=== PATIENT | male | born 1940 | race Caucasian/White ===

== ENCOUNTER → 2017-03-20 | Outpatient (CLI) | payer OTHER ==
[~2017-03-20] MED LIST: ASPIRIN EC81 M1 PO; CARVEDILOL6.25 MG PO; FLEXERIL PO; FLOMAX0.4 MG PO; GABAPENTIN 100100 MG PO; GLIPIZIDE ER2.5 MG PO; LANTUS SOL100 UNIT/1 SUBQ; METFORMIN HCL500 MG PO; NOVOLOG FL100 UNIT/M SUBQ; OMEGA-3100 MG; PREDNISONE 10 M10 MG PO; PRINIVIL20 MG PO; REQUIP 1 MG TABL1 M1 PO; SIMVASTATIN40 MG PO; VICODIN 5-5001 EACH PO; VICTOZA0.6 MG/0.1 SUBQ
== END ==
LOC: ULTRA 03-14 12:58
DX: K76.0 Fatty (change of) liver, not elsewhere classified (principal)

== ENCOUNTER → 2017-12-24 | Outpatient (CLI) | payer OTHER ==
[~2017-12-24] VITALS: Ht 175.3 cm; Wt 101.5 kg
--- NOTE | ~2017-12-24 | HPC ---
[facility] [place] [address] PAIN MANAGEMENT CONSULTATION Name: CARI RAJPUT Room #: REG [facility] Shaina#: [id number] Admission: 12/24/17 Attend Phys: Bernardo Carvajal DO Discharge: Date of : 38 Report #: [id number] THIS REPORT FOR: //name// CC: Bernardo Ron MD DATE OF SERVICE: 12/24/2017 CHIEF COMPLAINT: Low back pain, left lower extremity pain with paresthesias. HISTORY OF PRESENT ILLNESS: As you know, the patient is a very pleasant 77-year-old male with recurrent low back pain, left lower extremity pain with paresthesias. The patient states he had this symptom in 2016 where he had a CT-guided ablation of the synovial cyst at the L4-L5 level that was causing displacement of the left nerve root as it was actually in the neural foramen at that level. He states his pain improved over about a 6-month period of time and slowly and progressively returned. The patient states he has been experiencing pain over a year now and has discussed this with his primary care physician. The patient underwent x-ray imaging of the lumbar spine, which showed some mild arthritic changes based on the patient's recollection, though this is not available to us. The patient has not undergone definitive imaging to determine if his synovial cyst has returned and is the source of his symptoms. The patient has subsequently been referred to our clinic for evaluation for suspected lumbar radiculopathy. There is no new imaging available to us except for the reports from the patient of some arthritic changes on x-ray. The patient indicates pain is periodic and intermittent, describes the pain as shooting and stabbing, places current pain score 3/10, daily average at 7/10, worst pain has been 9/10. The patient states walking exacerbate symptoms, sitting down tends to improve pain. He has been referred to our service to discuss options for treatment for lumbar radiculopathy. PAST MEDICAL HISTORY: 1. Hyperlipidemia. 2. Hypertension. 3. 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 4. Restless leg syndrome. 5. Coronary artery disease. PAST SURGICAL HISTORY: 1. Coronary artery bypass grafting. 2. Craniotomy. SOCIAL HISTORY: The patient denies tobacco, alcohol, IV or illicit drug use. He retired in 2001. He is receiving disability from the [address] [place] [address] PAIN MANAGEMENT CONSULTATION Name: SHAEYOUNGCRAI FIGUEROA Room #: REG HERMAN Merritt#: [id number] Admission: 12/24/17 Attend Phys: Bernardo Carvajal DO Discharge: Date of : 38 Report #: [id number] Administration. He is not in litigation in regards to pain, is accompanied by his who is present in room today. REVIEW OF SYSTEMS: Positive for changes in bowel movements, constipation, frequent urination, nocturia, kidney stones, numbness and tingling sensations in bilateral feet, head injury with required surgical intervention, insulin-dependent diabetes, excessive thirst, urination, chronic low back pain. All other review of systems negative per 12-point review of systems other than those listed in history of present illness. Pain impact score 20/70 indicating [id number] interference of daily activities secondary to pain. ALLERGIES: No reported drug allergies. CURRENT MEDICATIONS: Victoza 0.6 mg subcutaneous, gabapentin 100 mg 3 times a day, Lantus 50 units subQ at bedtime, NovoLog 12 units 3 times a day, cyclobenzaprine 10 mg 3 times a day, prednisone 10 mg per day, tamsulosin 0.4 mg per day, aspirin 81 mg per day, lisinopril 20 mg per day, carvedilol 6.25 mg twice a day, simvastatin 40 mg per day, Requip 1 mg 2 tabs per day. IMAGING: No imaging available. PQRS: The patient has osteoarthritis of the left lower extremity and right lower extremity. Pain intensity is rated at 3/10. He does not have rheumatoid arthritic diagnosis. He is not a fall risk, has not had a fall in the last 3 months. He is not on blood thinners. He is treated for hypertension. He is not on opioids. His risk assessment tool for opioid addiction is low. PAIN ASSESSMENT: See above. PHYSICAL EXAMINATION: VITAL SIGNS: Blood pressure 110/80, pulse 83, respiratory rate 16 and unlabored. The patient is 97% on room air. Height 5 feet 9 inches tall, weight 223.8 pounds, and BMI calculated 33. GENERAL: Well-developed, well-nourished, well-hydrated, morbidly obese 77-year-old male appearing stated age, placing current pain score at 3/10. HEENT: Normocephalic, atraumatic. Pupils are equal, round, reactive to light. Extraocular muscles are intact. Sclerae nonicteric without injection. NEUROLOGIC: Cranial nerves 2 through 12 grossly intact. Speech is fluent. The patient deemed a fair historian. LUNGS: Clear, no wheeze, rhonchi or rales. CARDIOVASCULAR: Regular. No appreciable gallop, no rub. ABDOMEN: Soft, obese, nontender, nondistended. EXTREMITIES: Show no clubbing, no cyanosis, no edema. MUSCULOSKELETAL: Lower extremity strength appears equal and symmetrical 5/5, [address] [address] PAIN MANAGEMENT CONSULTATION Name: CARI RAJPUT Room #: REG [facility]#: [id number] Admission: 12/24/17 Attend Phys: Bernardo Carvajal DO Discharge: Date of : 38 Report #: [id number] intact to light touch from L1 through S2 dermatomes. Seated straight leg raising positive on the left. Supine straight leg raising positive on the left. Tio's test negative. Modified Gaenslen's positive for axial low back pain. Ankle clonus negative. Babinski is negative. Muscle bulk and tone appears equal and symmetrical. Gait antalgic favoring left lower extremity over right. Lumbar provocation testing is met with increasing pain with axial rotation, lateral flexion. ASSESSMENT: 1. Lumbar radiculopathy. 2. Facet arthropathy of the lumbar spine. 3. Chronic intractable pain. PLAN: 1. Based on today's physical exam and history the patient is providing, the description the patient uses in regards to pain, the likely source of the symptoms is a lumbar radiculopathy. 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 The patient underwent ablation of this synovial cyst via fenestration under CT guidance through Interventional Radiology. Apparently, his symptoms did improve. Unfortunately, his symptoms did return, which is fairly classic for a synovial cyst. I am concerned that the synovial cyst has returned to cause mass effect. Further imaging, I believe would be extremely helpful to determine if a referral to Interventional Radiology would been recommended or possible surgical options. If the patient does have a cystic formation at the L4-L5 level, fenestration of that cyst will provide improvement in symptoms, but no prolonged pain relief will be noted as the cyst will re-form and cause similar compressive effects. Surgical options tend to be the more prolonged and beneficial treatment option. We will have the patient undergo MRI imaging in the next couple of days. Once he has undergone the imaging, we will review the findings and contact the patient in regards to the treatment options. 2. The patient was provided prescription for MRI lumbar spine without contrast. The patient will undergo the imaging as quickly as possible. We wish to further evaluate the lumbar region before discussing definitive treatment options. If the symptoms are related to the cyst noted on the 2016, fenestration of the cyst would be recommended initially. If this does not provide benefit for greater than 6 months, I would then recommend the patient be evaluated from a surgical standpoint to remove the cyst entirely where it would continue to reoccur. The patient was provided the MRI today. We will review the findings once they are available. 3. No medication changes made at today's visit. The patient to continue current medical therapy as previously prescribed. 4. We will see the patient back in followup visit once he has completed his MRI, discuss the findings and then provide recommendations for treatment. [address] [address] PAIN MANAGEMENT CONSULTATION Name: CARI RAJPUT Room #: KRISTI Merritt#: [id number] Admission: 12/24/17 Attend Phys: Bernardo Carvajal DO Discharge: Date of : 38 Report #: [id number] 5. We wish to thank Dr. Ron for the referral of this patient to our clinic. 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 Again, we wish to thank you for the opportunity to see the patient in consultation. <ELECTRONICALLY SIGNED> By: Bernardo Carvajal DO 12/25/17 [id number] [id number] Bernardo Carvajal DO /nt
[2017-12-24 12:53] VITALS: BP 110/80
== END ==
LOC: PAIN 06:18
DX: M54.16 Radiculopathy, lumbar region (principal); G89.4 Chronic pain syndrome; M12.88 Other specific arthropathies, not elsewhere classified, other specified site; Z79.899 Other long term (current) drug therapy

== ENCOUNTER → 2017-12-25 | Outpatient (CLI) | payer OTHER | LOC: MRI 10:11 | DX: M47.896 Other spondylosis, lumbar region (principal); M54.16 Radiculopathy, lumbar region ==

== ENCOUNTER → 2017-12-25 | Outpatient (CLI) | payer OTHER ==
[~2017-12-25] VITALS: Ht 175.3 cm; Wt 102.2 kg
--- NOTE | ~2017-12-25 | HPC ---
[facility] [place] [address] PAIN MANAGEMENT CONSULTATION Name: SHAEYOUNGCARI MARTI Room #: REG [facility] Shaina#: [id number] Admission: 12/25/17 Attend Phys: Bernrado Carvajal DO Discharge: Date of : 38 Report #: [id number] THIS REPORT FOR: //name// CC: Bernardo Pittman DATE OF SERVICE: 12/25/2017 CHIEF COMPLAINT: Low back pain, left lower extremity pain and paresthesias. HISTORY OF PRESENT ILLNESS: As you know, the patient is a very pleasant 77-year-old male who has had history of low back pain and left lower extremity pain in 2016 for which he underwent fenestration of a synovial cyst at the L4-L5 level. He returns in followup visit having been seen just yesterday, diagnosed with lumbar radiculopathy and the source of his lumbar radicular symptoms was concerning for recurrence of the synovial cyst. He underwent MRI imaging, which showed the similar cyst, slightly larger than the 2016. This is causing mass effect upon the central canal with reduction of the central canal to less than 5 mm as well as displacement of the exiting nerve root. He returns today in followup visit to discuss treatment options. He is placing pain score at 3/10. He states his pain is sharp, stabbing, shooting, numbness and tingling; exacerbated with walking; worse in the morning, walking on inclines and uneven ground and standing; improves with sitting and repositioning. He returns today to review the MRI obtained earlier this morning to discuss treatment options. ALLERGIES: No reported drug allergies. CURRENT MEDICATIONS: Victoza, gabapentin, insulin, tamsulosin, aspirin, lisinopril, simvastatin, ropinirole. SOCIAL HISTORY: The patient denies tobacco, alcohol, IV or illicit drug use. He is retired. He is accompanied by his who is present in room today. IMAGING: MRI of the lumbar spine obtained on 12/25/2017 shows L1-L2 with mild facet arthropathy, no central canal neural foraminal stenosis. L2-L3, moderate bilateral posterior facet degenerative changes with ligamentum flavum hypertrophy, no central canal neural foraminal stenosis. L3-L4, moderate posterior facet degenerative changes, ligamentum flavum hypertrophy, no central canal neural foraminal stenosis. L4-L5, general disk bulge again seen anteriorly, projecting left posteriorly is a large synovial cyst. The cyst measures 1.5 x 0.9 cm in AP and transverse dimension. It causes mass effect upon the descending left L5 nerve root resulting in severe left lateral recess narrowing. At L5-S1, moderate posterior facet degenerative changes. No central canal [place] [address] PAIN MANAGEMENT CONSULTATION Name: CARI RAJPUT Room #: REG HERMAN Merritt#: [id number] Admission: 12/25/17 Attend Phys: Bernardo Carvajal DO Discharge: Date of : 38 Report #: [id number] PQRS: The patient has known osteoarthritis, bilateral hips, bilateral knees. No rheumatoid arthritis. He is placing pain intensity 3/10. He is not a fall risk, has not had a fall in the last 3 months. He is not on blood thinners. He is treated for hypertension. He is not on opioids. He is a low risk for opioid addiction. He places his pain impact functional assessment at 27/70. Zrjy-ze-[id number] interference of daily activities secondary to pain. PHYSICAL EXAMINATION: VITAL SIGNS: Blood pressure 113/72, pulse is 108, respiratory rate 16 and unlabored. The patient is 98% on room air. Height 5 feet 9 inch tall, weight 225.4 pounds, BMI calculated at 33.3. GENERAL: Well-developed, well-nourished, well-hydrated exogenously obese 77-year-old male. He appears his stated age. He is placing current pain score at 3/10. HEENT: Normocephalic, atraumatic. Pupils equal, round, reactive to light. Extraocular muscles are intact. Sclerae nonicteric without injection. NEUROLOGIC: Cranial nerves 2-12 grossly intact. Speech is fluent. EXTREMITIES: Show no clubbing, no cyanosis, no edema. MUSCULOSKELETAL: Seated straight leg raising positive on the left. Supine straight leg raising positive on the left. Tio's test negative. Modified Gaenslen's positive for axial low back pain. Ankle clonus negative. Babinski is negative. Gait antalgic favoring left lower extremity over right. ASSESSMENT: 1. Symptomatic lumbar radiculopathy. 2. Displacement of lumbar intervertebral disk with radiculopathy. 3. 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 4. Facet arthropathy of lumbar spine. 5. Neural foraminal stenosis of lumbar spine. 6. Lumbar degeneration. 7. Chronic intractable pain. PLAN: 1. The patient has returned today in followup visit where we have taken 24 minutes of time to review the patient's MRI and correlate to his specific findings. We used not only models but also digital representations to provide the patient with information about the findings at the L4-L5 level. After this discussion and review of his MRI, we discussed treatment options as follows. 2. We discussed the patient could undergo physical therapy, stretching exercise, core strengthening which might improve overall pain, but will not change the findings at the L4-L5 level. We discussed medication management, which may improve symptom perception, but will again not change any of the findings of the L4-L5 level. We discussed having the patient seek evaluation and treatment with Interventional Radiology to undergo fenestration of the synovial cyst as he had done in 2016, which gave him approximately 6 weeks to 8 [facility] [address] [place] [address] PAIN MANAGEMENT CONSULTATION Name: KRISTAYOUNGCARI FIGUEROA [facility] [id number] Admission: 12/25/17 Attend Phys: Bernardo Carvajal DO Discharge: Date of : 38 Report #: [id number] weeks' worth of relief. We also discussed surgical options to excise the cyst entirely, which would greatly reduce the possibility of the cyst returning spontaneously. After reviewing the risks and benefits of all proposed treatment options, the patient chose to move forward with a surgical consultation. 3. The patient was provided a referral to [facility]. We have taken the liberty of assisting the patient in making an appointment with nurse practitioner to be evaluated from a surgical standpoint to address the synovial cyst. The patient and I did discuss the possibility of fenestrate the cyst to improve pain, but he does wish to look towards surgical options before making any decisions of temporary treatment options. 4. We made no changes in the patient's medication management today. We will be available to see him back as necessary. We have offered to him treatment options and we will be available to provide if he wishes to move forward. We wish to thank Dr. Ron for the referral of the patient to our clinic. We will keep you apprised of any further treatment options provided through [facility]. Again, we wish to thank you for the opportunity to see the patient in consultation. By: [id number] Bernardo Carvajal DO /nt
[2017-12-25 12:58] VITALS: BP 113/72
== END ==
LOC: PAIN
DX: M54.16 Radiculopathy, lumbar region (principal); G89.4 Chronic pain syndrome; M51.36 Other intervertebral disc degeneration, lumbar region; M48.061 Spinal stenosis, lumbar region without neurogenic claudication; M12.88 Other specific arthropathies, not elsewhere classified, other specified site; M71.38 Other bursal cyst, other site

== ENCOUNTER 2019-10-07 21:21 | Inpatient (IN) | payer OTHER ==
[~2019-10-07] VITALS: Ht 175.3 cm; Wt 105.2 kg
--- NOTE | ~2019-10-07 | EMS ---
[address] [address] EMS Patient Care Report Name: CARI RAJPUT Room #: REG DIVINA Merritt#: [id number] Admission: 10/07/19 Attend Phys: Discharge: Date of : 38 Report #: [id number] THIS REPORT FOR: //name// Report Transmitted: 10/07/2019 23:04 EMS Care Summary [facility] Incident [id number] @ 10/07/2019 20:40 Incident Location [address] [place] [address] Patient CARI RAJPUT Male, 78 Years 1940 Patient Address [address] [place], [place] [id number] Patient History Diabetes,Hypertension (HTN),Arthritis,Coronary Artery Bypass Graft (CABG),Neuropathy, Patient Allergies No known allergies, Patient Medications Simvastatin, Gabapentin, Tamsulosin, Novolog, Carvedilol, Lisinopril, Trulicity, Lantus, Ropinirole, Chief Complaint Discomfort to arm Disposition Transported No Lights/[place] Dispatch Reason Chest Pain (Non-Traumatic) Transported To [facility] Medic 1 dispatched to the residence of a 78 year old male pt with a chief complaint of arm discomfort. Upon arrival crew located pt sitting upright [address] [address] EMS Patient Care Report Name: CARI RAJPUT Room #: REG DIVINA Merritt#: [id number] Admission: 10/07/19 Attend Phys: Discharge: Date of : 38 Report #: [id number] on a couch. Pt presented with a patent airway and warm dry skin. Pt stated that he was experiencing discomfort to his left arm that spread into his back. Pt stated that it was not painful but "uncomfortable". Pt stated that he had a hx of a quadruple bypass and had a similar feeling in his arm prior to needing the surgery. 12 lead EKG was preformed and showed no ST segment elevation at this time. Pt was placed on stretcher by crew and secured using straps. 20 g IV was established in pts right hand. 250 mL fluid bolus was administered in route to the hospital. Blood sugar check was 350. Pt stated that he normally checked his blood sugar regularly and took insulin earlier in the evening prior to dinner. Pt denied chest pain or SOA. Pt rated the discomfort in his arm as a 6/10. Pt denied nausea or vomiting. Pt denied recent trauma to arm. Pt denied cough or fever. Pt was transported to [facility] without incident and care was transferred to ED staff. Initial Vitals @20:48P: 90,R: 11,BP: 153/80,Pain: 6/10,GCS: 15,Revised Trauma: 12, @20:48P: 86,R: 10,Pain: 6/10,GCS: 15, @20:58P: 87,R: 14,Pain: 6/10,GCS: 15,CO: 0,SpO2: 96, @21:00P: 87,R: 18,BP: 154/101,Pain: 6/10,GCS: 15,SpO2: 97,Revised Trauma: 12, @21:10P: 90,R: 23,Pain: 6/10,GCS: 15,CO: 1,SpO2: 97, Assessments @20:46MENTAL:No Abnormalities,SKIN:HEENT:Head/Face: No Abnormalities,LUNG SOUNDS:General: No Abnormalities,Left Upper: No Abnormalities,Right Upper: No Abnormalities,Left Lower: No Abnormalities,Right Lower: No Abnormalities,ABDOMEN:General: No Abnormalities,Left Upper: No Abnormalities,Right Upper: No Abnormalities,Left Lower: No Abnormalities,Right Lower: No Abnormalities,PELVIS//GI:No Abnormalities,EXTREMITIES:Left Arm: Abnormal Sensation,Left Arm: Other,Capillary Refill: Right Upper: < 2 Sec,Right Arm: No Abnormalities,Left Leg: No Abnormalities,Right Leg: No Abnormalities,PULSE:Radial: 2+ Normal,NEURO:No Abnormalities, Impression Extremity Pain Procedures @20:59General CommentsResponse: Unchanged@20:58Saline Lock 0cc (20 ga) Site: Hand-RightResponse: UnchangedSucceeded@20:46ALS AssessmentResponse: UnchangedSucceeded@21:00Normal Saline (.9% NaCl) 250cc () Site: Hand-RightResponse: UnchangedSucceeded@20:4812-Lead ECGResponse: UnchangedSucceeded Timeline 20:38,Call Received 20:38,Psap Call 20:40,[place] [address] EMS Patient Care Report Name: CARI RAJPUT Room #: REG DIVINA Merritt#: [id number] Admission: 10/07/19 Attend Phys: Discharge: Date of : 38 Report #: [id number] 20:42,En Route 20:44,On Scene 20:45,At Patient 20:46,ALS Assessment,Response: UnchangedSucceeded, 20:48,12-Lead ECG,Response: UnchangedSucceeded, 20:48,BP: / M,PULSE: 86,RR: 10 R,SPO2: Ox,ETCO2: ,BG: ,PAIN: 6,GCS: 15, 20:48,BP: 153/80 M,PULSE: 90,RR: 11 R,SPO2: Ox,ETCO2: ,BG: ,PAIN: 6,GCS: 15, 20:55,Depart Scene 20:58,Saline Lock 0cc 20 ga Site: Hand-Right,Response: UnchangedSucceeded, 20:58,BP: / M,PULSE: 87,RR: 14 R,SPO2: 96 Ox,ETCO2: ,BG: ,PAIN: 6,GCS: 15, 20:59,General Comments,Response: Unchanged 21:00,Normal Saline (.9% NaCl) 250cc Site: Hand-Right,Response: UnchangedSucceeded, 21:00,BP: 154/101 M,PULSE: 87,RR: 18 R,SPO2: 97 Ox,ETCO2: ,BG: ,PAIN: 6,GCS: 15, 21:10,BP: / M,PULSE: 90,RR: 23 R,SPO2: 97 Ox,ETCO2: ,BG: ,PAIN: 6,GCS: 15, 21:15,At Destination 21:30,Call Closed Disclaimer v1.1 Copyright 2020 [employer] This EMS Care Summary contains data elements from the applicable legal record (which may be displayed differently). It is designed to provide pertinent information for the following purposes: continuity of care, clinical quality, and state data reporting. The complete legal record is available to ED staff and administrators of the receiving hospital in [employer] Patient Tracker. All data is provided "as is."
[2019-10-07 21:21] VITALS: BP 148/87
[2019-10-07 22:21] LABS: ANION GAP 12 mmol/L (7-16); BUN 23 mg/dL (7-18); CALCIUM 7.7 mg/dL (8.5-10.1); CHLORIDE 104 mmol/L (98-107); CO2 21 mmol/L (21-32); CREATININE 1.5 mg/dL (0.7-1.3); GLUCOSE 311 mg/dL (74-106); POTASSIUM 4.5 mmol/L (3.5-5.1); SODIUM 137 mmol/L (136-145)
[2019-10-07 22:31] LABS: ALBUMIN 2.9 g/dL (3.4-5.0); SGOT 36 U/L (15-37); SGPT 41 U/L (30-65); TOTAL BILIRUBIN 0.4 mg/dL (0.2-1.0); TOTAL PROTEIN 6.6 g/dL (6.4-8.2); TROPONIN-I <0.06 ng/mL (<0.06)
[2019-10-07 22:48] LABS: ABSOLUTE NEUTROPHILS 6.9 thou/uL (1.4-8.2); EOSINOPHILS 3.2 % (0.0-3.0); HEMATOCRIT 42.2 % (42.0-52.0); HEMOGLOBIN 14.3 gm/dL (14.0-18.0); LYMPHOCYTES 25.5 % (24.0-44.0); MCHC 33.8 g/dL (28.0-37.0); MCV 94.8 fL (80.0-100.0); MONOCYTES 8.6 % (1.0-8.0); PLATELET COUNT 244 thou/uL (150-400); POLYS 60.7 % (36.0-66.0); RBC 4.45 mil/uL (4.50-6.00); RDW 13.8 % (10.5-14.5); WBC 11.4 thou/uL (4.0-11.0)
[2019-10-08] VITALS (11 sets, daily range): BP systolic 98–148; BP diastolic 57–87
[2019-10-08 03:04] LABS: HEMATOCRIT 40.3 % (42.0-52.0); HEMOGLOBIN 13.7 gm/dL (14.0-18.0); MCH 32.2 pg (26.0-34.0); MCHC 33.9 g/dL (28.0-37.0); MCV 94.9 fL (80.0-100.0); RBC 4.25 mil/uL (4.50-6.00); RDW 13.3 % (10.5-14.5); WBC 11.1 thou/uL (4.0-11.0)
[2019-10-08 03:22] LABS: INR 1.1; PROTIME 11.4 Seconds (9.3-11.4)
[2019-10-08 03:43] LABS: CHOLESTEROL 95 mg/dL (<200); HDL CHOLESTEROL 31 mg/dL (>40); LDL CHOLESTEROL 46 mg/dL (<100); TC:HDL 3.1 Ratio (Not establshd); TRIGLYCERIDE 94 mg/dL (<150); VLDL 19 mg/dL (<40)
[2019-10-08 03:58] LABS: SERUM ASSESSMENT Clear
--- NOTE | 2019-10-08 04:19 | NUR ---
RECIEVED PT FROM ED UPON ARRIVAL PT DENIES CHEST OR LEFT BACK AND SHOULDER PAIN. [PT ABULATED FROM CART TO BED ,THEN STOOD TO WEIGH , TOLERATED WELL. PLACED ON THEATRICAL DRESSER SHOWS NSR 74 . DATA BASE AND ASSESSMENT COMPLETED. NEW IV PLACED AND HEPARIN GTT STARTED PRE ORDERED. DISCUSSED PLAN OF CARE AND NPO STATUS, PT VERBALIZEDAND AGREEABLE. PT WILL INFORM TO BRING MEDICATION RECORD IN AM.
--- NOTE | 2019-10-08 08:27 | EKG ---
[facility] [address] [place] [address] ELECTROCARDIOGRAM REPORT Name: CARI RAJPUT Room #: 211-P ADM IN M.R.#: [id number] Admission: 10/08/19 Attend Phys: Kinsey Hernandez Discharge: Date of : 38 Report #: [id number] THIS REPORT FOR: cc: Damon Ron Steven F. DO Couchonnal, Luis F. 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
[2019-10-08 10:04] LABS: CALCIUM 8.4 mg/dL (8.5-10.1); CREATININE 1.4 mg/dL (0.7-1.3); PHOSPHORUS 3.2 mg/dL (2.5-4.9)
[2019-10-08 10:51] LABS: FOLIC ACID 8.9 ng/mL (8.6-58.9)
--- NOTE | 2019-10-08 11:55 | 2DMMODE ---
[facility] [place] [address] 2 D/M-MODE ECHOCARDIOGRAM Name: CARI RAJPUT FIGUEROA Room #: 211-P ADM IN M.R.#: [id number] Admission: 10/08/19 Attend Phys: Kinsey Hernandez Discharge: Date of : 36 Report #: [id number] THIS REPORT FOR: cc: Damon Ron,Clifford Jordan MD ~ APPROVED REPORT Study performed: 10/08/2019 10:56:42 EXAM: Comprehensive 2D, Doppler, and color-flow Echocardiogram Patient Location: Bedside Room #: 211 Status: routine BSA: 2.22 HR: 73 bpm BP: 126/64 mmHg Rhythm: NSR Other Information Study Quality: Adequate Indications Arm pain, NSTEMI. Hx: CABG, HTN, HLD, DM. 2D Dimensions RVDd: 37.73 mm IVSd: 9.00 (7-11mm) LVOT Diam: 22.00 (18-24mm) LVDd: 49.00 mm PWd: 10.00 (7-11mm) Ascending Ao: 34.00 (22-36mm) LVDs: 36.20 (25-40mm) Aortic Root: 35.00 mm Volumes Left Atrial Volume (Systole) Single Plane 4CH: 40.18 mL Single Plane 2CH: 40.69 mL LA ESV Index: 19.00 mL/m2 Aortic Valve AoV Peak Keith.: 1.41 m/s AO Peak Gr.: 7.90 mmHg LVOT Max P.32 mmHg LVOT Max V: 0.76 m/s CLOVIS Vmax: 2.06 cm2 [facility] [address] [place] [address] 2 D/M-MODE ECHOCARDIOGRAM Name: CARI RAJPUT FIGUEROA Room #: 211-P [facility] IN [facility].#: [id number] Admission: 10/08/19 Attend Phys: Kinsey Koehler Discharge: Date of : 38 Report #: [id number] Mitral Valve E/A Ratio: 0.9 MV Decel. Time: 176.10 ms MV E Max Keith.: 0.70 m/s MV A Keith.: 0.81 m/s MV PHT: 51.07 ms IVRT: 65.74 ms Pulmonary Valve PV Peak Keith.: 1.00 m/s PV Peak Gr.: 3.98 mmHg Pulmonary Vein P Vein S: 0.62 m/s P Vein A: 0.29 m/s P Vein D: 0.46 m/s P Vein A Dur.: 110.7 msec P Vein S/D Ratio: 1.35 Tricuspid Valve TR Peak Keith.: 2.33 m/s RAP Estimate: 5.00 mmHg TR Peak Gr.: 22.00 mmHg PA Pressure: 27.00 mmHg Left Ventricle The left ventricle is normal size. There is normal left ventricular wall thickness. Left ventricular systolic function is low normal. LVEF is 50%. Mild diastolic dysfunction is present (impaired relaxation pattern). Right Ventricle The right ventricle is normal size. The right ventricular systolic function is normal. Atria The left atrium size is normal. The right atrium size is normal. Aortic Valve Aortic valve is mildly calcified. Trace aortic regurgitation. There is no aortic valvular stenosis. Mitral Valve The mitral valve is normal in structure. Mild mitral regurgitation. No evidence of mitral valve stenosis. Tricuspid Valve The tricuspid valve is normal in structure. Mild to moderate [facility] [address] [place] [address] 2 D/M-MODE ECHOCARDIOGRAM Name: REGULOCARI FIGUEROA Room #: 211-P ADM IN M.R.#: [id number] Admission: 10/08/19 Attend Phys: Kinsey Koehler Discharge: Date of : 36 Report #: [id number] tricuspid regurgitation. Estimated PAP is 25-30mmHg. Pulmonic Valve The pulmonary valve is normal in structure. Trace pulmonic regurgitation. Great Vessels The aortic root is normal in size. The ascending aorta is normal in size. IVC is normal in size and collapses >50% with inspiration. Pericardium There is no pericardial effusion. <Conclusion> The left ventricle is normal size. LVEF is 50%. Aortic valve is mildly calcified. Trace aortic regurgitation. The mitral valve is normal in structure. Mild mitral regurgitation. The tricuspid valve is normal in structure. Mild to moderate tricuspid regurgitation. Estimated PAP is 25-30mmHg. The pulmonary valve is normal in structure. Trace pulmonic regurgitation. There is no pericardial effusion. <ELECTRONICALLY SIGNED> By: Clifford Márquez MD 10/08/19 1155 1155 1155 Clifford Márquez MD /INF
[2019-10-08] MEDS ORDERED: TRULICITY1.5 MG/0.5 (12:12)
[2019-10-08 17:02] LABS: HEMATOCRIT 39.7 % (42.0-52.0); HEMOGLOBIN 13.6 gm/dL (14.0-18.0); MCH 32.2 pg (26.0-34.0); MCHC 34.3 g/dL (28.0-37.0); MCV 94.1 fL (80.0-100.0); RBC 4.21 mil/uL (4.50-6.00); RDW 13.7 % (10.5-14.5); WBC 12.4 thou/uL (4.0-11.0)
--- NOTE | 2019-10-08 18:32 | NUR ---
PT CARE ASSUMED APPROX 1630. ALERT AND ORIENTED X4. PT DENIES PAIN AND SOA. POST CARDIAC CATH VSS. RIGHT GROIN POST CATH SITE C/D/I. PT UP WITH STEADY GAIT AFTER BEDREST. PT DENIES QUESTIONS OR CONCERNS REGARDING POC. NO DISTRESS NOTED.
[2019-10-09] VITALS (7 sets, daily range): BP systolic 94–138; BP diastolic 58–70
[2019-10-09 01:06] LABS: GLYCOHEMOGLOBIN (HGB A1C) 8.3 % (4.8-5.6)
[2019-10-09] MEDS ORDERED: METOPROLOL SUCC25 M1 PO (07:51)
[2019-10-09] MEDS ORDERED: LIPITOR40 MG PO (07:51)
[2019-10-09] MEDS ORDERED: EFFIENT10 MG PO (07:51)
--- NOTE | 2019-10-09 07:53 | NUR ---
Assumed Care 1900. pt alert and oriented. off bedrest S/p heart cath. Denies chest pain, or SOB. No nausea V/D. Pt insulin scheduled changed from AC to ACHS last night per Pt request. Ad carloz in his room. No other concerns. Pt anticipate to DC home this AM. Will continue with poc.
[2019-10-09 08:11] LABS: ABSOLUTE NEUTROPHILS 7.5 thou/uL (1.4-8.2); HEMATOCRIT 42.2 % (42.0-52.0); HEMOGLOBIN 14.6 gm/dL (14.0-18.0); MCH 32.5 pg (26.0-34.0); MCHC 34.7 g/dL (28.0-37.0); MCV 93.7 fL (80.0-100.0); MONOCYTES 9.4 % (1.0-8.0); PLATELET COUNT 251 thou/uL (150-400); POLYS 62.6 % (36.0-66.0); RBC 4.51 mil/uL (4.50-6.00); WBC 12.1 thou/uL (4.0-11.0)
[2019-10-09 08:27] LABS: ALBUMIN 3.2 g/dL (3.4-5.0); CALCIUM 8.9 mg/dL (8.5-10.1); CREATININE 1.4 mg/dL (0.7-1.3); POTASSIUM 4.3 mmol/L (3.5-5.1); TOTAL BILIRUBIN 0.8 mg/dL (0.2-1.0); TOTAL PROTEIN 7.2 g/dL (6.4-8.2)
[2019-10-09 08:36] LABS: TROPONIN-I 3.06 ng/mL (<0.06)
--- NOTE | 2019-10-09 08:36 | NUR ---
PT. DENIES ANY SHOULDER PAIN, NO CHEST PAIN EITHER, NOR SOB. REVIEWED HIS MEDICATIONS WIH HIM AND EXPLAINED TO HIM HIS NEW MEDICATION STHAT HAVE BEEN ADDED TO HIOS TREATMENT PLAN AND THE IMPORTANCE OF SUCH AND COMPLIANCE TO KEEP HIS STENT OPEN AND CLOT FREE, AGREED TO SUCH. EATING BREAKFAST NOW, MEDICATIONS GIVEN.
--- NOTE | 2019-10-09 09:20 | EKG ---
[facility] [place] [address] ELECTROCARDIOGRAM REPORT Name: CARI RAJPUT Room #: 211-P ADM IN M.R.#: [id number] Admission: 10/08/19 Attend Phys: Kinsey Hernandez Discharge: Date of : 38 Report #: [id number] THIS REPORT FOR: cc: Damon Ron,Xavier Varghese MD [facility] ~ THIS REPORT FOR: //name// [facility] Test Date: 2019-10-09 Test Time: 07:38:53 Pat Name: CARI RAJPUT Department: Room: 211 P Gender: M Trap Puller: JANIS : 1940 Requested By: Matthew Elder Order Number: [id number] MD: Xavier Vidal Measurements Intervals [place] Rate: 89 P: 43 WV: 169 QRS: 31 QRSD: 125 T: 133 QT: 370 QTc: 451 Interpretive Statements Sinus rhythm Nonspecific ST segment abnormality Baseline wander in lead(s) II,V6 Compared to ECG 10/07/2019 21:29:29 No significant change was found Electronically Signed On 10-09-2019 9:19:57 CDT by Xavier Vidal [email or web address] <ELECTRONICALLY SIGNED> By: Xavier Vidal MD, [facility] 10/09/19918 7 7 Xavier Vidal MD, FAC /EPI
--- NOTE | 2019-10-09 09:52 | NUR ---
RIGHT GROIN SITE IS HEMATOMA FREE, DRESING IS C,D,I PEDAL PULSES ARE 2+ BILATERALLY AND STRONG.
--- NOTE | 2019-10-09 15:29 | CATHLAB ---
[facility] [place] [address] INVASIVE PROCEDURE REPORT Name: CARI RAJPUT Room #: 211-P ADM IN M.R.#: [id number] Admission: 10/08/19 Attend Phys: Sriramfunmilayo Laurent David Discharge: Date of : 38 Report #: [id number] THIS REPORT FOR: cc: Damon Ron Steven F. DO Mancuso, Gerald M. MD [facility] ~ APPROVED REPORT Study performed: 10/08/2019 12:51:56 Patient Details The patient is a 78 year-old male Event Personnel Matthew Elder Meat Apprentice, Alpesh Sales RN, [place] RTR Scrub, Nancy Ya RT(R)() Monitor Procedures Performed Art Access - R femoral artery* Left Heart Cath Coronaries, Bypass Grafts 2801431 LHCCORCABG JENNIFER Place w/wo Plasty Single RAMUS Inter 888431 Abdominal Aortography 072086 Hemostasis w/ Mynx 80887 Initial Mod Sed Same Phys/QHP Gr5y 780990 67968 Mod Sed Same Phys/QHP Ea 795649 Procedure Narrative The Right Groin^ was infiltrated with 1% Lidocaine subcutaneous anesthesia. A PINNACLE 6FR Sheath #[id number] sheath was inserted into the RFA^. Coronary angiography was performed using coronary diagnostic catheters. The right coronary system was accessed and visualized with a JR4 catheter. The left coronary system was accessed and visualized with a JL4 catheter. The left ventricle was accessed and visualized with a PIGTAIL catheter. The patient tolerated the procedure well and there were no complications associated with the procedure. There was no hematoma. Intraoperative Conscious Sedation Fentanyl 50 mcg Versed 2 mg Fluoro Time: 11.10 minutes Dose: DAP 79556.70 cGycm2 3859 mGy Contrast Type and Amount: Visipaque 257 ml Hemodynamics The aortic pressure is 108/56 mmHg with a mean of 78 mmHg. The left [facility] [address] [place] [address] INVASIVE PROCEDURE REPORT Name: CARI RAJPUT FIGUEROA Room #: 211-P [facility] IN .R.#: [id number] Admission: 10/08/19 Attend Phys: Kinsey Koehler Discharge: Date of : 38 Report #: [id number] ventricular pressure is 112/4 mmHg with a mean of mmHg. The left ventricular end diastolic pressure is 24 mmHg. PCI Technique Lesion Percutaneous coronary intervention was performed on the ramus intermedius segment. A LAUNCHER 6FR EBU 3.5 #[id number] Guide Catheter was used to engage the ostium. A Luge Wire .014 x 182CM #[id number] Interventional Guidewire was used to cross the lesion. BALLOON DILATION A Balloon catheter Sprinter OTW 2.25 x 12 #[id number] was inserted and inflated up to 8.00atm for 22seconds. Additional Inflation: 10.00atm for 22seconds. STENT DEPLOYMENT A stent RESOLUTE KYRA RX 2.25 X 8 #[id number] was inserted and inflated up to 12.00atm for 22seconds. Additional Inflation: 10.00atm for 19seconds. Additional Inflation: 14.00atm for 17seconds. Conclusion 1. Successful PTCA stent of a high-grade subtotal ostial ramus intermedius branch placement of a 2.25 x 8 resolute postdilated to 2.4 mm RITO grade III flow #2 moderately diseased LAD giving rise to a totally occluded LAD and moderate ostial circumflex system #3 a RADFORD to LAD with a jump graft to diagonal is widely patent. Mild disease LAD and diagonal retrograde filling of a OM system is noted #4 probable and a nondominant right coronary with mild disease. #5 an SVG urinary probable this was a radial graft that is patent to the distal circumflex OM system filling the posterior lateral branch and some retrograde filling of the first OM via this graft dominant system #6 the circumflex gives rise to a first OM branch which is widely patent does not appear to be bypassed. There is also a ramus branch as noted above that was intervened on. This was not bypassed. #7 normal left ventricular size and systolic function EF 55% #8 abdominal aortogram mild aortic ectasia. Appears to be mildly diseased renal arteries possibly a moderate disease in the left renal artery will evaluate noninvasively. No definite aneurysm. Recommendations and plan: Continue aggressive risk factor modification. Dual antiplatelet therapy initiated with the [facility] [address] [place] [address] INVASIVE PROCEDURE REPORT Name: CARI RAJPUT Room #: [facility] IN M.R.#: [id number] Admission: 10/08/19 Attend Phys: Kinsey Koehler Discharge: Date of : 38 Report #: [id number] branch intervention. Transferred to CCU to follow post coronary stent protocol <ELECTRONICALLY SIGNED> By: Matthew Elder MD, FACC 10/09/19 1529 1529 1529 Matthew Elder MD, FACC /INF
--- NOTE | 2019-10-09 19:29 | NUR ---
RIGHT GROIN SITE REMAINS HEMATOMA FREE. RESTING IN BED NO COMPLAINTS, DENIES ANY PAIN. NSR NO ECTOPY AND DENIES SOB.
[2019-10-10 04:18] VITALS: BP 103/70
[2019-10-10 08:30] VITALS: BP 125/71
[2019-10-10 11:29] VITALS: BP 125/71
--- NOTE | 2019-10-10 12:48 | NUR ---
assessment as charted. meds as per may - no co's of pain or nasuea. shon diet ane fluids. up ad carloz in room - pt home this am, instruction re home meds. care and follow up given to aptient - stated understanding of instruction given, pt instructed to remove dressing from groin site this evening or in the am. pt's had already picked up [place] prescriptions from pharmacy. pt left unit via wheel chair accomapnied by wifr home via pvt vehicle. no co's at time of d/c. monitor removed.
== END 2019-10-10 11:45 | disposition home or self-care (01) | DRG 246 ==
LOC: ER 21:21 → EROBS 10-08 02:03 → 2N 10-08 02:03
PROVIDERS: Emergency Medicine; Internal Medicine Cardiovascular Disease; Nurse Practitioner; Nurse Practitioner Family; ADMIT Hospitalist; ATTEND Hospitalist
PROC: B215YZZ Fluoroscopy of Left Heart using Other Contrast (ICD-10-PCS; principal; 2019-10-08)
PROC: B211YZZ Fluoroscopy of Multiple Coronary Arteries using Other Contrast (ICD-10-PCS; principal; 2019-10-08)
PROC: B212YZZ Fluoroscopy of Single Coronary Artery Bypass Graft using Other Contrast (ICD-10-PCS; principal; 2019-10-08)
PROC: 027034Z Dilation of Coronary Artery, One Artery with Drug-eluting Intraluminal Device, Percutaneous Approach (ICD-10-PCS; principal; 2019-10-08)
PROC: 4A023N7 Measurement of Cardiac Sampling and Pressure, Left Heart, Percutaneous Approach (ICD-10-PCS; principal; 2019-10-08)
PROC: B218YZZ Fluoroscopy of Left Internal Mammary Bypass Graft using Other Contrast (ICD-10-PCS; principal; 2019-10-08)
PROC: B410YZZ Fluoroscopy of Abdominal Aorta using Other Contrast (ICD-10-PCS; principal; 2019-10-08)
DX: I21.4 Non-ST elevation (NSTEMI) myocardial infarction (principal); I50.31 Acute diastolic (congestive) heart failure; N17.9 Acute kidney failure, unspecified; E44.0 Moderate protein-calorie malnutrition; E78.5 Hyperlipidemia, unspecified; G89.29 Other chronic pain; M54.9 Dorsalgia, unspecified; I25.10 Atherosclerotic heart disease of native coronary artery without angina pectoris; E86.0 Dehydration; I12.9 Hypertensive chronic kidney disease with stage 1 through stage 4 chronic kidney disease, or unspecified chronic kidney disease; E11.22 Type 2 diabetes mellitus with diabetic chronic kidney disease; N18.9 Chronic kidney disease, unspecified; E83.51 Hypocalcemia; N40.0 Benign prostatic hyperplasia without lower urinary tract symptoms; E11.42 Type 2 diabetes mellitus with diabetic polyneuropathy; I08.3 Combined rheumatic disorders of mitral, aortic and tricuspid valves; Z95.1 Presence of aortocoronary bypass graft; Z85.828 Personal history of other malignant neoplasm of skin; Z79.82 Long term (current) use of aspirin; Z79.899 Other long term (current) drug therapy; Z79.4 Long term (current) use of insulin; Z82.49 Family history of ischemic heart disease and other diseases of the circulatory system; Z87.891 Personal history of nicotine dependence
CPT/HCPCS: 10081

== ENCOUNTER → 2019-11-20 | Outpatient (CLI) | payer OTHER ==
[~2019-11-20] MED LIST changes: +EFFIENT10 MG PO; +LIPITOR40 MG PO; +METOPROLOL SUCC25 M1 PO; +TRULICITY1.5 MG/0.5
== END ==
LOC: SJCVCIMAG 08:58
PROVIDERS: ATTEND Internal Medicine Cardiovascular Disease
DX: R94.31 Abnormal electrocardiogram [ECG] [EKG] (principal); I73.9 Peripheral vascular disease, unspecified; I25.10 Atherosclerotic heart disease of native coronary artery without angina pectoris; I10 Essential (primary) hypertension; E78.00 Pure hypercholesterolemia, unspecified; I70.1 Atherosclerosis of renal artery; E11.9 Type 2 diabetes mellitus without complications; Z79.4 Long term (current) use of insulin; Z79.899 Other long term (current) drug therapy

== ENCOUNTER → 2020-04-05 | Outpatient (CLI) | payer OTHER | LOC: SJCVC 13:22 → SJCVCIMAG 13:22 | PROVIDERS: ATTEND Internal Medicine Cardiovascular Disease | DX: I65.23 Occlusion and stenosis of bilateral carotid arteries (principal); I25.810 Atherosclerosis of coronary artery bypass graft(s) without angina pectoris; R94.31 Abnormal electrocardiogram [ECG] [EKG]; I10 Essential (primary) hypertension; E78.00 Pure hypercholesterolemia, unspecified; E11.9 Type 2 diabetes mellitus without complications; I70.1 Atherosclerosis of renal artery; Z95.1 Presence of aortocoronary bypass graft; Z95.5 Presence of coronary angioplasty implant and graft; Z79.4 Long term (current) use of insulin; Z79.82 Long term (current) use of aspirin; Z79.899 Other long term (current) drug therapy; Z82.49 Family history of ischemic heart disease and other diseases of the circulatory system ==

== ENCOUNTER → 2020-08-02 | Outpatient (CLI) | payer OTHER | LOC: RAD 16:25 | PROVIDERS: ATTEND Neuromusculoskeletal Medicine & OMM | DX: M25.551 Pain in right hip (principal); M25.552 Pain in left hip; M54.5 Low back pain ==

== ENCOUNTER → 2020-08-15 | Outpatient (CLI) | payer OTHER | LOC: MRI 09:14 | PROVIDERS: ATTEND Neuromusculoskeletal Medicine & OMM | DX: M47.816 Spondylosis without myelopathy or radiculopathy, lumbar region (principal); M48.061 Spinal stenosis, lumbar region without neurogenic claudication; M51.36 Other intervertebral disc degeneration, lumbar region ==

== ENCOUNTER → 2020-09-06 | Outpatient (CLI) | payer OTHER | LOC: SJCVCIMAG 08:03 | PROVIDERS: ATTEND Internal Medicine Cardiovascular Disease | DX: I49.3 Ventricular premature depolarization (principal); R07.89 Other chest pain; R06.00 Dyspnea, unspecified; I25.810 Atherosclerosis of coronary artery bypass graft(s) without angina pectoris; E11.42 Type 2 diabetes mellitus with diabetic polyneuropathy; E78.00 Pure hypercholesterolemia, unspecified; I10 Essential (primary) hypertension; I65.23 Occlusion and stenosis of bilateral carotid arteries; Z95.1 Presence of aortocoronary bypass graft; Z95.5 Presence of coronary angioplasty implant and graft; Z79.82 Long term (current) use of aspirin; Z79.4 Long term (current) use of insulin; Z79.899 Other long term (current) drug therapy; Z82.49 Family history of ischemic heart disease and other diseases of the circulatory system ==

== ENCOUNTER → 2020-09-13 | Outpatient (CLI) | payer OTHER ==
[~2020-09-13] VITALS: Ht 175.3 cm; Wt 105.2 kg
[~2020-09-13] MED LIST changes: +JARDIANCE10 MG PO
--- NOTE | ~2020-09-13 | HPC ---
[facility] [place] [address] PAIN MANAGEMENT CONSULTATION Name: CARI RAJPUT Room #: REG [place]asen [place]#: [id number] Admission: 09/13/20 Attend Phys: Bernardo Carvajal DO Discharge: Date of : 38 Report #: [id number] THIS REPORT FOR: cc: Damon Ron,Bernardo Garcia DO ~ cc: Damon Ron MD DATE OF SERVICE: 09/13/2020 CHIEF COMPLAINT: Low back pain. HISTORY OF PRESENT ILLNESS: As you know, the patient is a very pleasant 79-year-old male who reports ongoing low back pain that has been present for years, denying any injury or trauma. He has undergone imaging studies in 2018, which showed changes at the L4-L5 level for which he submitted to a surgery to address. His symptoms improved only minimally after that surgery. He continued to experience axial back pain. He continued to describe pain complaints and ultimately was sent by his primary care physician, Dr. Ron to undergo new imaging, which was performed on 08/15/2020. It does show postsurgical changes at L4-L5. No significant central canal or neural foraminal stenosis at any level. He was referred back to our clinic to discuss treatment options of axial back pain that worsens with activity and standing, improves with sitting and lying down. The patient reports today pain is continuous, steady and constant when doing activities, improves with sitting and lying down. His pain rating today is anywhere from 7-8/10. Pain has been going on for years. He apparently underwent physical therapy per his recollection, but in further questioning, the physical therapy was actually for cardiovascular issues and not addressing his low back and thus had no effect on his symptoms. He has been referred to our service to discuss interventional treatment options to address axial back pain, likely due to facet arthropathy. PAST MEDICAL HISTORY: 1. Coronary artery disease. 2. Hypertension. 3. Dyslipidemia. 4. Neuropathic pain. 5. Diabetes mellitus type 2. 6. Restless leg syndrome. PAST SURGICAL HISTORY: 1. L4-L5 microlaminotomy. 2. Coronary artery angioplasty with stenting. 3. Coronary artery bypass grafting. 4. Craniotomy. [address] [address] PAIN MANAGEMENT CONSULTATION Name: CARI RAJPUT [facility] Room #: REG Jasen Merritt#: [id number] Admission: 09/13/20 Attend Phys: Bernardo Carvajal DO Discharge: Date of : 38 Report #: [id number] SOCIAL HISTORY: The patient denies tobacco, alcohol, or IV or illicit drug use. He is retired, retired years ago. He is accompanied by a family member present in the room today. ALLERGIES: No reported drug allergies. CURRENT MEDICATIONS: Jardiance 10 mg once a day, metoprolol XL 25 mg once a day, atorvastatin 40 mg per day, Effient 10 mg per day, Trulicity 1.5 mg weekly, gabapentin 100 mg q.a.m., sliding scale insulin, Lantus 20 units subcutaneously twice a day, tamsulosin 0.4 mg once a day, aspirin 81 mg per day, lisinopril 20 mg per day, and ropinirole 1 mg p.r.n. IMAGING: MRI lumbar spine obtained on 08/15/2020, shows changes at the L4-L5 level consistent with microlaminotomy. There is no recurrence of the cystic formation. There are arthritic changes noted at L4-L5 and L5-S1. PQRS: The patient has known arthritic changes of the lumbar spine, bilateral hips and knees. No rheumatoid arthritis. He is placing current pain score 7-8/10. He is not a fall risk, has not had a fall in last 3 months. He is on blood thinners and is treated for hypertension. He is not on chronic opioids, has a low opioid addiction potential based on assessment tool. Pain impact is 27/70, moderate interference of daily activities secondary to pain. PHYSICAL EXAMINATION: VITAL SIGNS: Blood pressure 109/63, pulse 87, respiratory rate 16 and unlabored. The patient 97% on room air. Height 5 feet 9 inches tall, weight 232 pounds, BMI calculated 34.2. GENERAL: Well-developed, well-nourished, well-hydrated 79-year-old male appearing stated age, pain is rated today at 7-8/10. HEENT: Normocephalic, atraumatic. Pupils equal, round and responsive. He is wearing a mask in compliance with COVID-19 regulations. LUNGS: Appear clear. No wheeze, rhonchi or rales. CARDIOVASCULAR: Regular. No appreciable gallop, no rub. ABDOMEN: Soft, mildly obese. EXTREMITIES: Show no clubbing, no cyanosis, no edema. MUSCULOSKELETAL: Lower extremity strength equal and symmetrical, but deconditioned, rated at 5/5. Deep tendon reflexes are symmetrical at patella and Achilles. Ankle clonus negative. Babinski is negative. Seated straight leg raising negative. Supine straight leg raising negative. Fabere's test is negative. Modified Gaenslen's positive for axial low back pain. Lumbar provocation testing including extension, rotation, lateral flexion all intensify axial back pain. ASSESSMENT: 1. 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 [facility] [address] [place] [address] PAIN MANAGEMENT CONSULTATION Name: CARI RAJPUT Room #: REG NAFISAJasen Merritt#: [id number] Admission: 09/13/20 Attend Phys: Bernardo Carvajal DO Discharge: Date of : 38 Report #: [id number] 2. Facet arthropathy of lumbar spine. 3. Failed lumbar spine surgery. 4. Chronic intractable pain. PLAN: 1. Based on today's physical exam and history the patient has provided, the description the patient uses in regards to pain as well as the location of symptoms, it would appear the patient is suffering from chronic facet arthropathy of the lumbar spine due to the findings at the L4-L5 and L5-S1 level. The fact that the surgery did not improve his axial back pain is completely understandable as the surgery itself was to address the cystic formation that was causing impingement upon the nerve roots, which did resolve the patient's radicular pain, but left him with continued axial back pain due to facet arthropathy. We discussed this with the patient today. After this discussion of the findings of the MRI and how they correlate to current symptoms, we then discussed the treatment options and the following was discussed with the patient. We discussed physical therapy, stretching exercises and core strengthening as the gold standard of treatment for facet arthropathy pain. The fact the patient has only mild to moderate facet degenerative changes, would indicate that he should see good benefit with PT. We discussed suggestions and medication management. Unfortunately, nonsteroidal anti-inflammatories cannot be utilized on this patient due to his concomitant use of Effient. Though this is the gold standard of treatments, it cannot be utilized in this patient's case. We discussed facet injections as a treatment course, but advised the patient that coverage for these injections are much more difficult to obtain as they have been determined that facet injections themselves are classified as experimental. We discussed medial branch nerve blocks, radiofrequency lesioning as a treatment course, which may be ultimately our treatment option and finally surgical options with fusion of the L4-L5 and L5-S1 level. After reviewing the risks and benefits of all proposed treatment options, the patient chose to begin with conservative treatment and physical therapy. 2. The patient will be sent for physical therapy twice a week for 6 weeks. The physical therapists are to direct their care to his axial back. They can utilize modalities such as electrical stimulation, ultrasound, traction and TENS as well as strengthening options. This should improve the patient's axial back pain without intervention. The patient will start this activity as quickly as possible. As indicated in the history of present illness, the patient reported he had been in physical therapy in the past, but this was for cardiovascular issues only and was not directed to the low back. 3. We plan to see the patient back in followup visit once he has completed his physical therapy. If he is doing well, we will release his care back to his primary care team. If his symptoms continue, we will discuss medial branch nerve blocks and radiofrequency lesioning as a treatment course. 4. No medication changes were made at today's visit. The patient will continue current medical therapy as prior prescribed. [address] [address] PAIN MANAGEMENT CONSULTATION Name: CARI RAJPUT Room #: REG CLJasen Merritt#: [id number] Admission: 09/13/20 Attend Phys: Bernardo Carvajal DO Discharge: Date of : 38 Report #: [id number] 5. We plan to see the patient back in followup visit in approximately 6 weeks after completing physical therapy. We will discuss treatment options again at that point. We are hopeful the patient will see benefit with the physical therapy, request provided today. 6. We wish to thank Dr. Damon Ron for the opportunity to see this patient in consultation. We will keep you apprised of his response to treatment as we address axial back pain due to facet arthropathy. Again, we wish to thank you for the opportunity to see the patient in consultation. By: 0731 2054 Bernardo Carvajal DO /nt
[2020-09-13 10:10] VITALS: BP 109/63
--- NOTE | 2020-09-13 10:27 | NUR ---
Pain Clinic Assessment: 1. History of Osteoarthritis: Left Lower Extremity Right Lower Extremity History of Rheumatoid Arthritis: Not Applicable 2. Height: 5 ft. 9 in. 175.3 cm. Weight: 232.0 lb. oz. 105.235 kg. Patient's BMI: 34.2 3. Vital Signs: BP: 109/63 Pulse: 87 Resp: 16 Temp: 02 Sat: 97 ECG Mon: 4. Pain Intensity: 7-8 5. Fall Risk: Dizziness: N Needs help standing or walking: N Fallen in the last 3 months: N Fall risk comments: 6. Patient on Blood Thinner: None 7. History of Hypertension: Y 8. Opioid Therapy greater than 6 weeks: N Opiate Contract Signed: 9. Risk Assessment Tool Provided: LOW RISK 0/3 10. Functional Assessment Tool: 11. Recreational Drug Use: Never Drug Type: Tobacco Use: Never Smoker Tobacco Type: Amount or Packs/day: How Many Years: Alcohol Use: Yes Frequency: Quant:
== END ==
LOC: PAIN 07:51
PROVIDERS: ATTEND Anesthesiology Pain Medicine
DX: M47.27 Other spondylosis with radiculopathy, lumbosacral region (principal); G89.4 Chronic pain syndrome; E11.9 Type 2 diabetes mellitus without complications; E78.5 Hyperlipidemia, unspecified; I25.10 Atherosclerotic heart disease of native coronary artery without angina pectoris; I10 Essential (primary) hypertension; Z95.1 Presence of aortocoronary bypass graft; Z79.891 Long term (current) use of opiate analgesic; Z79.899 Other long term (current) drug therapy

== ENCOUNTER → 2020-11-08 | Outpatient (CLI) | payer OTHER ==
[~2020-11-08] VITALS: Ht 175.3 cm; Wt 102.6 kg
[2020-11-08 08:37] VITALS: BP 103/64
--- NOTE | 2020-11-08 08:49 | NUR ---
Pain Clinic Assessment: 1. History of Osteoarthritis: Left Lower Extremity Right Lower Extremity History of Rheumatoid Arthritis: Not Applicable 2. Height: 5 ft. 9 in. 175.3 cm. Weight: 226.2 lb. oz. 102.604 kg. Patient's BMI: 33.4 3. Vital Signs: BP: 103/64 Pulse: 87 Resp: 16 Temp: 02 Sat: 100 ECG Mon: 4. Pain Intensity: 7 5. Fall Risk: Dizziness: N Needs help standing or walking: N Fallen in the last 3 months: N Fall risk comments: 6. Patient on Blood Thinner: EFFIENT 7. History of Hypertension: Y 8. Opioid Therapy greater than 6 weeks: N Opiate Contract Signed: 9. Risk Assessment Tool Provided: LOW RISK 0/3 10. Functional Assessment Tool: 11. Recreational Drug Use: Never Drug Type: Tobacco Use: Never Smoker Tobacco Type: Amount or Packs/day: How Many Years: Alcohol Use: No Frequency: Quant:
--- NOTE | 2020-11-08 13:36 | HPC ---
[facility] [place] [address] PAIN MANAGEMENT CONSULTATION Name: CARI RAJPUT Room #: REG HERMAN ZavalaSelmaBryantSelma#: [id number] Admission: 11/08/20 Attend Phys: Bernardo Carvajal DO Discharge: Date of : 38 Report #: [id number] THIS REPORT FOR: cc: Damon Ron,Bernardo Garcia DO ~ cc: Damon Ron MD DATE OF SERVICE: 11/08/2020 REFERRING PHYSICIAN: Dr. Ron. CHIEF COMPLAINT: Low back pain, left lower extremity pain with paresthesias. HISTORY OF PRESENT ILLNESS: As you know, the patient is a pleasant 80-year-old male returning in followup visit having completed 5 weeks of physical therapy without significant improvement in his symptoms. He states he is much stronger and more balanced, but has noted not much in the way of pain improvement. The patient recently had an MRI of the lumbar spine without contrast obtained per the request of his primary care physician. This was done on 08/15/2020. This shows surgical changes at the L4 level, but progression of his neural foraminal stenosis has been noted and this is since his previous evaluation of 2017. Symptoms correlate to the findings of the MRI and he was subsequently referred back to our clinic to discuss interventional treatment options. The patient is reporting his pain today at a level of about 7/10. He does report the physical therapy was minimally effective at treating symptoms. He returns to discuss other options for treatment. He has been off his Effient in preparation for an injection if it is deemed appropriate. ALLERGIES: No reported drug allergies. CURRENT MEDICATIONS: Jardiance, metoprolol XL, atorvastatin, Trulicity, gabapentin, sliding scale insulin, Lantus, tamsulosin, aspirin, lisinopril, ropinirole, Effient (held for 7 days). SOCIAL HISTORY: The patient denies tobacco, alcohol or IV or illicit drug use. He is retired, retired years ago. He is accompanied by his daughter present in room today. IMAGING: No new imaging available. PQRS: The patient has known arthritic changes of lumbar spine, bilateral hips and knees. No rheumatoid arthritis. He is placing current pain score 7/10. He is not a fall risk, has not had a fall in last 3 months. He is on blood thinners in the form of Effient, but stopped this days ago in preparation for the injection, possibility today. He is treated for hypertension. He is not on chronic opioids, has a low opioid addiction potential based on assessment tool. [address] [address] PAIN MANAGEMENT CONSULTATION Name: REGULOCARI MARTI Room #: REG [facility] Shaina#: [id number] Admission: 11/08/20 Attend Phys: Bernardo Carvajal DO Discharge: Date of : 38 Report #: [id number] Pain impact is 20/70, moderate interference of daily activities secondary to pain. PHYSICAL EXAMINATION: VITAL SIGNS: Blood pressure 103/64, pulse 87, respiratory rate 16 and unlabored. The patient 100% on room air. Height 5 feet 9 inches tall, weight 226.2 pounds, BMI calculated 33.4. GENERAL: Well-developed, well-nourished, well-hydrated 80-year-old male appearing stated age. He is placing pain today at a level of 7/10. HEENT: Normocephalic, atraumatic. Pupils equal, round and responsive. EXTREMITIES: Show no clubbing, no cyanosis. No appreciable edema. MUSCULOSKELETAL: Lower extremity strength is symmetrical 5/5, but deconditioning is noted symmetrically. Ankle clonus negative. Babinski remains negative. SANDRA test is negative. Modified Gaenslen's positive for some axial low back pain. Seated straight leg raising negative. Supine straight leg raising positive on the left. ASSESSMENT: 1. Symptomatic lumbar radiculopathy. 2. Neural foraminal stenosis of lumbar spine. 3. Lumbosacral spondylosis. 4. 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 6. Chronic intractable pain. PLAN: 1. The patient returns today in followup visit with continuation of low back pain and left lower extremity pain with paresthesias. He has completed 5 weeks of physical therapy and has noted minimal benefit. He returns today with new imaging done in August to review, which shows neural foraminal stenosis at the L4-L5 level consistent with the patient's distribution of pain. We discussed the treatment options, which would include the following: We discussed continuing physical therapy and to determine if strengthening and deconditioning can be improved. We discussed medication management, adding neuropathic medications such as amitriptyline, nortriptyline, Cymbalta, Lyrica or gabapentin. We discussed epidural injections under fluoroscopic guidance to address lumbar radicular pain. We also discussed surgical options with the patient. After reviewing risks and benefits of all proposed treatment options, the patient chose to begin with a lumbar epidural injection under fluoroscopic guidance. 2. The patient was provided risks and benefits to a lumbar epidural injection. These risks include, but are not necessarily limited to; bleeding, bruising, infection, worsening of pain, no relief of pain, temporary or permanent muscle weakness, temporary or permanent nerve damage, possible paralysis, post-dural puncture headache and . The patient states understood and wished to proceed. [facility] [address] [place] [address] PAIN MANAGEMENT CONSULTATION Name: CARI RAJPUT Room #: REG CLJasen Merritt#: [id number] Admission: 11/08/20 Attend Phys: Bernardo Carvajal DO Discharge: Date of : 38 Report #: [id number] 3. No medication changes made at today's visit. 4. We will see the patient back in followup visit in 1 month. At that time, review the efficacy of today's epidural injection to determine if next in the series of epidural injections would be recommended. DESCRIPTION OF PROCEDURE: L5-S1 parasagittal epidural steroid injection under fluoroscopic guidance. This is the first procedure of the first series that the patient is undergoing. After obtaining written consent, the patient was taken back to the fluoroscopy suite, placed in a prone position with pillow under the abdomen to decrease lumbar lordosis. The skin overlying the lumbosacral area was then prepped and draped in aseptic fashion. The L5-S1 vertebral interspace was then identified by AP fluoroscopy. The skin and subcutaneous tissue overlying the target site of injection was anesthetized with 3 mL 1% lidocaine. A 20-lorenzo, 3-1/2-inch Tuohy needle was then advanced under fluoroscopic guidance towards the epidural space using a paramedian approach. The epidural space was identified using loss of resistance to air technique. After negative aspiration for heme or cerebrospinal fluid, a total of 1 mL of Omnipaque was injected. A lumbar epidurogram was confirmed using both AP and lateral fluoroscopy. After negative aspiration for heme or cerebrospinal fluid, 5 mL of a solution containing 2 mL 40 mg per mL 80 mg total of triamcinolone along with 3 mL of lidocaine 1% was injected in increments. Contrast spread was noted in posterior epidural space. The needle was then retracted approximately half way and needle tract flushed with 1 mL of 1% lidocaine. Needle was then removed. There were no apparent sensory or motor deficits in the lower extremity following the procedure. A sterile bandage was placed over the injection site. The heart rate, pulse, oximetry and blood pressure were continuously monitored after the procedure. There were no apparent complications. The patient tolerated the procedure well and was carefully escorted to the recovery room in stable condition. There were no apparent complications. After meeting discharge criteria, the patient was then discharged home. <ELECTRONICALLY SIGNED> By: Bernardo Carvajal DO 11/08/20 1336 [id number] Bernardo Carvajal DO /nt
== END | disposition home or self-care (01) ==
LOC: PAIN 10-11 13:15
PROVIDERS: ATTEND Anesthesiology Pain Medicine
DX: M47.27 Other spondylosis with radiculopathy, lumbosacral region (principal); M47.26 Other spondylosis with radiculopathy, lumbar region; M48.061 Spinal stenosis, lumbar region without neurogenic claudication; G89.29 Other chronic pain; M96.1 Postlaminectomy syndrome, not elsewhere classified; I10 Essential (primary) hypertension; M19.90 Unspecified osteoarthritis, unspecified site; Z98.890 Other specified postprocedural states; Z79.899 Other long term (current) drug therapy; Z79.01 Long term (current) use of anticoagulants

== ENCOUNTER → 2020-12-07 | Outpatient (CLI) | payer OTHER ==
[~2020-12-07] VITALS: Ht 175.3 cm; Wt 99.9 kg
--- NOTE | ~2020-12-07 | HPC ---
[facility] [address] [place] [address] PAIN MANAGEMENT CONSULTATION Name: CARI RAJPUT Room #: REG HERMAN ValeSelma#: [id number] Admission: 12/07/20 Attend Phys: Bernardo Carvajal DO Discharge: Date of : 38 Report #: [id number] THIS REPORT FOR: cc: Damon Ron,Damon Balderas,Bernardo Meehan DO ~ cc: Damon Ron MD DATE OF SERVICE: 12/07/2020 CHIEF COMPLAINT: Low back pain, left lower extremity pain with paresthesias. HISTORY OF PRESENT ILLNESS: As you know, the patient is a very pleasant 80-year-old male returning in followup visit with pain level reported at 8/10. He states pain begins in low back, radiates across the buttock area and then radiates down bilateral legs. He describes pain as more chronic in nature, aching in sensation, exacerbated with walking, specifically on inclines or uneven ground and standing, improves with sleep, rest and repositioning. He returns today in followup visit requesting to continue his physical therapy program. Apparently, he has discontinued the activity. He has only been going twice a week for a couple of weeks and apparently was not participating in his daily homework assignments and he wants to restart the physical therapy in hopes of gaining some analgesic benefit. He did note improvement in symptoms as he continued to do the physical therapy, but unfortunately discontinued. He underwent a lumbar epidural injection per his request at our visit of 11/08/2020 and he received only minimal benefit. He returns today to restart physical therapy and discuss options for treatment. He has suffered no new injury, no new trauma. ALLERGIES: No reported drug allergies. CURRENT MEDICATIONS: Jardiance, metoprolol XL, atorvastatin, Trulicity, gabapentin, sliding scale insulin, Lantus, tamsulosin, aspirin, ropinirole and Effient. SOCIAL HISTORY: The patient denies tobacco, alcohol or IV or illicit drug use. He is retired, retired years ago, accompanied by his daughter present in room today. IMAGING: No new imaging available. PQRS: The patient has known arthritic changes of the lumbar spine, bilateral hips and knees. No rheumatoid arthritis. Pain is rated at about 8/10. He is not a fall risk, has not had a fall in last 3 months. He is treated for hypertension and is on Effient due to stenting 1 year ago. He is not on opioids, has a low opioid addiction potential. Pain impact is 27/70, moderate interference of daily activities secondary to pain. [address] [address] PAIN MANAGEMENT CONSULTATION Name: CARI RAJPUT Room #: REG [facility]YSelma#: [id number] Admission: 12/07/20 Attend Phys: Bernardo Carvajal DO Discharge: Date of : 38 Report #: [id number] PHYSICAL EXAMINATION: VITAL SIGNS: Blood pressure 122/81, pulse 93, respiratory rate 16 and unlabored, 98% on room air. Height 5 feet 9 inches tall, weight 220.2 pounds, BMI calculated 32.5. GENERAL: Well-developed, well-nourished, well-hydrated 80-year-old male appearing stated age, no acute distress. Awake, alert and oriented x3. Pain is rated today 8/10. HEENT: Normocephalic, atraumatic. Pupils equal, round and responsive. He is wearing a mask in compliance with COVID-19 regulations. EXTREMITIES: Show no clubbing, no cyanosis. No appreciable edema. MUSCULOSKELETAL: Lower extremity strength is symmetrical. There is deconditioning noted bilaterally, but strength is equal and symmetrical against resistance. Ankle clonus negative. Babinski is negative. Modified Gaenslen's positive for axial low back pain. Seated straight leg raising is negative. Supine straight leg raising remains positive on the left at about 60-degree angle. Ankle clonus negative. Lumbar provocation testing met with increasing pain with rotation and lateral flexion and extension. ASSESSMENT: 1. Symptomatic lumbar radiculopathy. 2. Neural foraminal stenosis of lumbar spine. 3. Lumbosacral spondylosis. 4. 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 6. Chronic intractable pain. PLAN: 1. The patient returns today in followup visit with continued pain level of 8/10. He is able to localize pain mainly across the low back and the upper buttock area, but does have symptoms that radiate all the way down the left leg. Of the generators, he states the pain in the low back is the most problematic. This correlates to the facet arthropathy that the patient has at the L4-L5 and L5-S1 level. He does have lumbar radicular component secondary to neural foraminal stenosis, radiating down the left leg. Unfortunately, the patient did not see good improvement with the epidural injection. He returns today wanting to restart his physical therapy. As indicated in the history of present illness, the patient had begun physical therapy, was participating on a hqhia-a-hpxi basis, but was not doing his home exercise and did not feel he was gaining much in the way of benefit. In retrospect, he believes he was seeing some significant improvement and he wishes to restart that activity. I have advised the patient to contact his physical therapy group and return to physical therapy as quickly as possible. If the patient needs any re-referrals or paperwork to indicate restart, I would be more than willing to provide this. 2. The patient and I did discuss intraarticular facet injections, medial branch nerve blocks and radiofrequency lesioning to address the axial back pain issues. [address] [address] PAIN MANAGEMENT CONSULTATION Name: CARI RAJPUT Room #: REG CLJasen Merritt#: [id number] Admission: 12/07/20 Attend Phys: Bernardo Carvajal DO Discharge: Date of : 38 Report #: [id number] We discussed with the patient all the other treatment options we have available. He is going to consider those after he completes his physical therapy. 3. No medication changes made at today's visit. The patient will continue current medical therapy as prior prescribed. 4. We will see the patient back in followup visit once he has completed physical therapy. We are hopeful the patient will see good and prolonged benefit with that activity. By: [id number] Bernardo Carvajal DO /nt
[2020-12-07 09:02] VITALS: BP 122/81
--- NOTE | 2020-12-07 09:19 | NUR ---
Pain Clinic Assessment: 1. History of Osteoarthritis: Left Lower Extremity Right Lower Extremity History of Rheumatoid Arthritis: Not Applicable 2. Height: 5 ft. 9 in. 175.3 cm. Weight: 220.2 lb. oz. 99.882 kg. Patient's BMI: 32.5 3. Vital Signs: BP: 122/81 Pulse: 93 Resp: 16 Temp: 02 Sat: 98 ECG Mon: 4. Pain Intensity: 8 W/ACTIVITY 5. Fall Risk: Dizziness: N Needs help standing or walking: N Fallen in the last 3 months: N Fall risk comments: 6. Patient on Blood Thinner: EFFIENT 7. History of Hypertension: Y 8. Opioid Therapy greater than 6 weeks: N Opiate Contract Signed: 9. Risk Assessment Tool Provided: LOW RISK 0/3 10. Functional Assessment Tool: 11. Recreational Drug Use: Never Drug Type: Tobacco Use: Never Smoker Tobacco Type: Amount or Packs/day: How Many Years: Alcohol Use: No Frequency: Quant:
== END ==
LOC: PAIN 06:51
PROVIDERS: ATTEND Anesthesiology Pain Medicine
DX: G89.29 Other chronic pain (principal); M47.26 Other spondylosis with radiculopathy, lumbar region; M48.061 Spinal stenosis, lumbar region without neurogenic claudication; Z79.82 Long term (current) use of aspirin

== ENCOUNTER → 2021-01-25 | Outpatient (CLI) | payer OTHER ==
[~2021-01-25] VITALS: Ht 175.3 cm; Wt 102.0 kg
[2021-01-25 10:50] VITALS: BP 123/75
--- NOTE | 2021-01-25 10:57 | NUR ---
Pain Clinic Assessment: 1. History of Osteoarthritis: Left Lower Extremity Right Lower Extremity History of Rheumatoid Arthritis: Not Applicable 2. Height: 5 ft. 9 in. 175.3 cm. Weight: 224.8 lb. oz. 101.969 kg. Patient's BMI: 33.2 3. Vital Signs: BP: 123/75 Pulse: 87 Resp: 18 Temp: 02 Sat: 92 ECG Mon: 4. Pain Intensity: 3 5. Fall Risk: Dizziness: N Needs help standing or walking: N Fallen in the last 3 months: N Fall risk comments: 6. Patient on Blood Thinner: EFFIENT 7. History of Hypertension: Y 8. Opioid Therapy greater than 6 weeks: N Opiate Contract Signed: 9. Risk Assessment Tool Provided: LOW RISK 0/3 10. Functional Assessment Tool: 11. Recreational Drug Use: Never Drug Type: Tobacco Use: Never Smoker Tobacco Type: Amount or Packs/day: How Many Years: Alcohol Use: No Frequency: Quant:
--- NOTE | 2021-01-31 08:44 | HPC ---
[facility] [place] [address] [place] [address] PAIN MANAGEMENT CONSULTATION Name: CARI RAJPUT Room #: REG HERMAN ValeSelma#: [id number] Admission: 01/25/21 Attend Phys: Bernardo Carvajal DO Discharge: Date of : 38 Report #: [id number] THIS REPORT FOR: cc: Damon Ron,Damon Balderas,Bernardo Meehan DO ~ cc: Damon Ron MD DATE OF SERVICE: 01/25/2021 CHIEF COMPLAINT: Low back pain, left lower extremity pain with paresthesias. HISTORY OF PRESENT ILLNESS: As you know, the patient is a very pleasant 80-year-old male returning in followup visit with pain level about 3/10. He is participating in physical therapy and has noted a significant improvement over the past 2-3 weeks. He has also had an increase in his gabapentin to 100 mg 3 times a day, which is also providing benefit. He returns today in followup visit having made an appointment about 2 weeks ago to trial an epidural injection, stating that he would like to delay that injection. He states he is doing very well. He has been able to return to his normal activities without significant pain interference. He is very pleased with response to adjustments in the gabapentin and the physical therapy. ALLERGIES: No known drug allergies. CURRENT MEDICATIONS: Jardiance 10 mg half a tab once a day, metoprolol 25 mg once a day, atorvastatin 40 mg per day, Effient 10 mg once a day, Trulicity 1.5 mg weekly, gabapentin 100 mg 3 times a day, Lantus 20 units in the morning and 20 units at night, sliding scale insulin, tamsulosin 0.4 mg once a day, aspirin 81 mg per day, ropinirole 1 mg per day. SOCIAL HISTORY: The patient denies tobacco, alcohol or IV or illicit drug use. He is retired, retired years ago, accompanied by his daughter and his , present in room today. IMAGING: No new imaging available. PQRS: The patient has known arthritic changes of lumbar spine, bilateral hips and knees. No rheumatoid arthritis. He is placing pain intensity at 3/10. He is not a fall risk, has not had a fall in the last 3 months. He is on the blood thinner in the form of Effient. He is treated for hypertension. He is not on chronic opioids, has a low opioid addiction potential. Pain impact is 27/70, moderate interference of daily activities secondary to pain. PHYSICAL EXAMINATION: VITAL SIGNS: Blood pressure 123/75, pulse 87, respiratory rate 18 and unlabored. The patient is 92% on room air. Height 5 feet 9 inches tall, weight [facility] [address] [place] [address] PAIN MANAGEMENT CONSULTATION Name: KRISTAYOUNGCARI FIGUEROA Room #: REG CL Shaina#: [id number] Admission: 01/25/21 Attend Phys: Bernardo Carvajal DO Discharge: Date of : 38 Report #: [id number] 224.8 pounds, BMI calculated 33.2. GENERAL: A well-developed, well-nourished, well-hydrated 80-year-old male appearing stated age, pain is rated today 3/10. HEENT: Normocephalic, atraumatic. Pupils equal, round and responsive. He is wearing a mask in compliance with COVID-19 regulations. He is a good historian. EXTREMITIES: Show no clubbing, no cyanosis. No appreciable edema. MUSCULOSKELETAL: Lower extremity strength is symmetrical, 5/5. There is some deconditioning noted, but strength is equal and symmetrical. Ankle clonus negative. Seated straight leg raising negative. Supine straight leg raising remains positive on the left. Tio test is negative. Modified Gaenslen's positive for axial low back pain. Ankle clonus negative. Babinski's is negative. Lumbar provocation testing is met with slight increase in pain. ASSESSMENT: 1. Symptomatic lumbar radiculopathy. 2. Neural foraminal stenosis of lumbar spine. 3. Lumbosacral spondylosis with radicular symptoms. 4. 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 6. Chronic intractable pain. PLAN: 1. The patient returns today in followup visit having made the appointment 2 weeks ago to undergo lumbar epidural injection under fluoroscopic guidance. The patient was stating at that time, his pain was very intense and did not believe the physical therapy was beneficial. Over the past 2 weeks, his pain has improved significantly. He is now placing pain score at 3/10. States he can tolerate the level of pain he is in currently. He states that the combination of physical therapy along with adjustments in his gabapentin, now taking 100 mg 3 times a day, has been working beneficially. The patient is able to sleep back in his bed, which he has not been able to do in years. He is very pleased with response to treatment. He states that his daily activities have improved significantly and believes that the physical therapy and adjustments in medications are working beneficially. 2. No medication changes made at today's visit. The patient will continue current medical therapy as prior prescribed. 3. The patient will return to our clinic on an as needed basis for the next in the series of lumbar epidural injections. I have encouraged him to continue physical therapy in the formalized fashion until which time he will be released and he can perform those physical activity programs every morning. This in combination with the medications, I believe is providing the benefit of analgesia. He should continue this at home. We will see him back p.r.n. <ELECTRONICALLY SIGNED> By: Bernardo Carvajal DO 01/31/21 0844 [id number] Bernardo Carvajal DO /nt
== END ==
LOC: PAIN 10:00
PROVIDERS: ATTEND Anesthesiology Pain Medicine
DX: M47.26 Other spondylosis with radiculopathy, lumbar region (principal); M47.27 Other spondylosis with radiculopathy, lumbosacral region; M48.062 Spinal stenosis, lumbar region with neurogenic claudication; M96.1 Postlaminectomy syndrome, not elsewhere classified; M79.662 Pain in left lower leg; G89.29 Other chronic pain; Z79.899 Other long term (current) drug therapy

== ENCOUNTER 2021-02-10 19:57 | Emergency (ER) | payer OTHER ==
[~2021-02-10] VITALS: Ht 175.3 cm; Wt 104.3 kg
[~2021-02-10 19:57] MED LIST changes: -LIDODERM1 EACH TOP; -MEDROLDOSEPACK PO; -PERCOCET 5-3251 EACH PO
[2021-02-11] MEDS ORDERED: LIDODERM1 EACH TOP (00:31)
[2021-02-11] MEDS ORDERED: PERCOCET 5-3251 EACH PO (00:31)
[2021-02-11] MEDS ORDERED: MEDROLDOSEPACK PO (00:31)
[2021-02-11 00:43] VITALS: BP 161/78
[2021-02-13] MEDS ORDERED: PERCOCET 5-3251 EACH PO (17:01)
== END 2021-02-11 00:44 | disposition home or self-care (01) ==
LOC: ER 19:57
DX: M54.41 Lumbago with sciatica, right side (principal); E10.42 Type 1 diabetes mellitus with diabetic polyneuropathy; Z85.828 Personal history of other malignant neoplasm of skin; Z79.4 Long term (current) use of insulin; Z79.82 Long term (current) use of aspirin; Z79.899 Other long term (current) drug therapy

== ENCOUNTER → 2021-02-10 | Outpatient (CLI) | payer OTHER ==
[~2021-02-10] MED LIST changes: +LIDODERM1 EACH TOP; +MEDROLDOSEPACK PO; +PERCOCET 5-3251 EACH PO
== END ==
LOC: MRI 09:25
PROVIDERS: ATTEND Nurse Practitioner
DX: M47.25 Other spondylosis with radiculopathy, thoracolumbar region (principal); M47.26 Other spondylosis with radiculopathy, lumbar region; M51.17 Intervertebral disc disorders with radiculopathy, lumbosacral region; M51.16 Intervertebral disc disorders with radiculopathy, lumbar region; M48.061 Spinal stenosis, lumbar region without neurogenic claudication; R29.898 Other symptoms and signs involving the musculoskeletal system

== ENCOUNTER → 2021-02-13 | Outpatient (CLI) | payer OTHER ==
[~2021-02-13] VITALS: Ht 175.3 cm; Wt 95.0 kg
[~2021-02-13] MED LIST changes: +LIDODERM1 EACH TOP; +MEDROLDOSEPACK PO; +PERCOCET 5-3251 EACH PO
[2021-02-13 13:36] VITALS: BP 131/72
--- NOTE | 2021-02-13 14:05 | NUR ---
Pain Clinic Assessment: 1. History of Osteoarthritis: LUMBAR SPINE History of Rheumatoid Arthritis: Not Applicable 2. Height: 5 ft. 9 in. 175.3 cm. Weight: 209.4 lb. oz. 94.983 kg. Patient's BMI: 30.9 3. Vital Signs: BP: 131/72 Pulse: 89 Resp: 16 Temp: 02 Sat: 97 ECG Mon: 4. Pain Intensity: 2 TO 3 WITH PAIN MED 5. Fall Risk: Dizziness: N Needs help standing or walking: Y Fallen in the last 3 months: Y Fall risk comments: 6. Patient on Blood Thinner: EFFIENT 7. History of Hypertension: Y 8. Opioid Therapy greater than 6 weeks: N Opiate Contract Signed: 9. Risk Assessment Tool Provided: LOW RISK 0/3 10. Functional Assessment Tool: 11. Recreational Drug Use: Never Drug Type: Tobacco Use: Never Smoker Tobacco Type: Amount or Packs/day: How Many Years: Alcohol Use: No Frequency: Quant:
== END ==
LOC: PAIN 08:47
PROVIDERS: ATTEND Anesthesiology Pain Medicine
DX: M54.16 Radiculopathy, lumbar region (principal); Z79.82 Long term (current) use of aspirin; Z79.899 Other long term (current) drug therapy; Z79.4 Long term (current) use of insulin

== ENCOUNTER → 2021-02-20 | Outpatient (CLI) | payer OTHER | LOC: RAD 09:38 | PROVIDERS: ATTEND Nurse Practitioner | DX: M79.671 Pain in right foot (principal) ==

== ENCOUNTER → 2021-03-13 | Outpatient (CLI) | payer OTHER ==
[~2021-03-13] VITALS: Ht 175.3 cm; Wt 103.0 kg
[2021-03-13 08:53] VITALS: BP 121/71
--- NOTE | 2021-03-13 09:04 | NUR ---
Pain Clinic Assessment: 1. History of Osteoarthritis: LUMBAR SPINE History of Rheumatoid Arthritis: Not Applicable 2. Height: 5 ft. 9 in. 175.3 cm. Weight: 227.0 lb. oz. 102.967 kg. Patient's BMI: 33.5 3. Vital Signs: BP: 121/71 Pulse: 94 Resp: 16 Temp: 02 Sat: 98 ECG Mon: 4. Pain Intensity: 1-2 5. Fall Risk: Dizziness: N Needs help standing or walking: Y Fallen in the last 3 months: N Fall risk comments: 6. Patient on Blood Thinner: EFFIENT 7. History of Hypertension: Y 8. Opioid Therapy greater than 6 weeks: N Opiate Contract Signed: 9. Risk Assessment Tool Provided: LOW RISK 0/3 10. Functional Assessment Tool: 11. Recreational Drug Use: Never Drug Type: Tobacco Use: Never Smoker Tobacco Type: Amount or Packs/day: How Many Years: Alcohol Use: No Frequency: Quant:
== END ==
LOC: PAIN 08:13
PROVIDERS: ATTEND Anesthesiology Pain Medicine
DX: M54.16 Radiculopathy, lumbar region (principal); Z79.82 Long term (current) use of aspirin; Z79.4 Long term (current) use of insulin

== ENCOUNTER → 2021-04-26 | Outpatient (CLI) | payer OTHER | LOC: SJCVC 15:08 | PROVIDERS: ATTEND Internal Medicine Cardiovascular Disease | DX: R94.31 Abnormal electrocardiogram [ECG] [EKG] (principal); I25.10 Atherosclerotic heart disease of native coronary artery without angina pectoris; I10 Essential (primary) hypertension; E78.2 Mixed hyperlipidemia; E11.42 Type 2 diabetes mellitus with diabetic polyneuropathy; Z79.4 Long term (current) use of insulin; I65.23 Occlusion and stenosis of bilateral carotid arteries; I70.1 Atherosclerosis of renal artery; Z98.61 Coronary angioplasty status; Z98.890 Other specified postprocedural states; Z79.899 Other long term (current) drug therapy ==